=== PATIENT | female | born 1945 | race Caucasian/White ===

== ENCOUNTER 2018-06-23 19:00 | Outpatient (CLI) | payer MEDICARE, BC ==
[2013-05-22 07:43] VITALS: BMI 24.3
[~2018-06-23 19:00] MED LIST: BAYER CHEWABLE81 MG PO; LISINOPRIL10 MG PO; MULTIPLE VITAMI1 TA1 PO; VITAMIN B-12500 MCG PO; VITAMIN E200 UNI2 PO; ZOCOR40 MG PO
== END 2018-06-23 23:59 | disposition home or self-care (01) ==
LOC: D.MAMMO 19:00
DX: Z12.31 Encounter for screening mammogram for malignant neoplasm of breast (principal)

== ENCOUNTER → 2019-07-09 11:46 | Outpatient (CLI) | payer MEDICARE, BC ==
[2013-05-22 07:43] VITALS: BMI 24.3
== END | disposition home or self-care (01) ==
LOC: D.US 11:46
PROVIDERS: ATTEND Surgery
DX: E04.2 Nontoxic multinodular goiter (principal)

== ENCOUNTER → 2019-12-31 13:29 | Outpatient (CLI) | payer MEDICARE, OTHER ==
[2013-05-22 07:43] VITALS: BMI 24.3
== END | disposition home or self-care (01) ==
LOC: D.US 11-06 13:00
PROVIDERS: ATTEND Surgery
DX: E04.2 Nontoxic multinodular goiter (principal)